=== PATIENT | male | born 1975 ===

== ENCOUNTER 2017-06-02 10:09 | Observation (INO) | payer OTHER ==
[2017-06-02] MEDS ORDERED: Sodium Chloride 0.9% 1,000 ML IV STA (10:44)
--- NOTE | 2017-06-02 10:44 | ED PDOC ---
HPI: General Adult Time Seen by Provider: 06/02/17 10:27 Chief Complaint (Nursing): Dizziness/Lightheaded Chief Complaint (Provider): dizziness, chest pain History Per: Patient Additional History Per: [facility] Additional Complaint(s): 41 year old male presents to ED with acute onset of dizziness, chest pain and epigastric pain that started about 10 minutes after he ate breakfast today. Patient states upon arrival dizziness has resolved but he still has chest and epigastric pain. Patient denies any shortness of breath. He denies any history of similar symptoms. Patient states he has a history of acid reflux and he takes OTC prevacid daily. He denies any nausea or vomiting upon arrival. Denies any fever or chills. Patient denies any recent travel. Past Medical History Reviewed: Historical Data, Nursing Documentation, Vital Signs Vital Signs: Last Vital Signs Temp 98.3 F 06/02/17 13:52 Pulse 75 06/02/17 13:52 Resp 16 06/02/17 13:52 BP 136/73 06/02/17 13:52 Pulse Ox 98 06/02/17 13:52 - Medical History PMH: GERD - Surgical History Surgical History: No Surg Hx - Family History Family History: States: No Known Family Hx - Living Arrangements Living Arrangements: With Family - Social History Current smoker - smoking cessation education provided: No Alcohol: None Drugs: Denies - Home Medications Home Medications: Ambulatory Orders Medication Instructions Recorded No Known Home Med 06/02/17 - Allergies Allergies/Adverse Reactions: Allergies Allergy/AdvReac Type Severity Reaction Status Date / Time No Known Allergies Allergy Verified 06/02/17 10:25 Review of Systems ROS Statement: Except As Marked, All Systems Reviewed And Found Negative Constitutional: Negative for: Fever Cardiovascular: Positive for: Chest Pain. Negative for: Palpitations Respiratory: Negative for: Cough, Shortness of Breath Gastrointestinal: Positive for: Abdominal Pain (epigastric). Negative for: Nausea, Vomiting, Diarrhea Genitourinary Male: Negative for: Dysuria Neurological: Positive for: Dizziness. Negative for: Weakness, Numbness, Incoordination, Change in Speech, Confusion, Seizures, Altered Mental Status, Headache Physical Exam - Reviewed Nursing Documentation Reviewed: Yes Vital Signs Reviewed: Yes - Physical Exam Appears: Positive for: Well, Non-toxic, No Acute Distress Head Exam: Positive for: ATRAUMATIC, NORMAL INSPECTION, NORMOCEPHALIC Skin: Negative for: Rash Eye Exam: Positive for: Normal appearance, EOMI, PERRL Cardiovascular/Chest: Positive for: Regular Rate, Rhythm Respiratory: Positive for: Normal Breath Sounds. Negative for: Respiratory Distress Gastrointestinal/Abdominal: Positive for: Other (super obese abdomen, mild epigastric tenderness, no rebound or guarding) Back: Negative for: L CVA Tenderness, R CVA Tenderness Extremity: Positive for: Normal ROM Neurologic/Psych: Positive for: Alert, Oriented - Laboratory Results Result Diagrams: 06/02/17 10:59 06/02/17 10:59 - ECG Interpretation Of ECG: NSR 96 bpm, no acute finding, reviewed by PA and ED attending O2 Sat by Pulse Oximetry: 97 Pulse Ox Interpretation: Normal - Other Rad GB US X-Ray: Read By Radiologist X-Ray Interpretation: see below CXR X-Ray: Interpreted by Me, Viewed By Me X-Ray Interpretation: no acute finding Medical Decision Making Medical Decision Makin41 year old with chest pain and epigastric pain Plan: EKG CXR GB US CBC CMP Trop IVF PO maalox and pepcid US: LIVER: Measures 23.0 cm in length reflecting hepatomegaly. Exam is somewhat limited due to body habitus. Echogenicity of the liver parenchyma appears grossly nonfocal. No mass. No intrahepatic bile duct dilatation. GALLBLADDER: Cholelithiasis identified within a mildly distended gallbladder. No definite pericholecystic fluid collection is appreciable. COMMON BILE DUCT: Measures 3.2 mm. No stones. No dilatation. PANCREAS: The body of pancreas is unremarkable the remainder obscured by overlying bowel. RIGHT KIDNEY: Measures 11.1 cm. Cm in length. Right kidney appears grossly nonfocal but is limited evaluation due to body habitus. AORTA: No aneurysmal dilatation. IVC: Unremarkable. OTHER FINDINGS: None. IMPRESSION: Hepatomegaly is suspected. No discrete mass is appreciated of the liver. The study is technically limited due to body habitus of the patient. Cholelithiasis identified within the gallbladder which is mildly distended. Normal common bile duct caliber is identified. Partial imaging of the pancreas. 41 year old with morbid obesity presents with chest pain, epigastric pain and dizziness. Hyperglycemia also noted. Case was d/w ED attending Dr. Olivas who agrees patient should be admitted. Dr. Ayala, hospitalist to admit. Patient is aware of and agrees with admission. Disposition - Clinical Impression Clinical Impression: Chest pain, Hyperglycemia - Disposition Disposition Time: 14:33 Condition: FAIR Results - Lab Results Lab Results: 06/02/17 06/02/17 10:59 10:59 WBC 6.1 RBC 5.22 Hgb 15.4 Hct 44.4 MCV 84.9 MCH 29.5 MCHC 34.7 RDW 13.0 Plt Count 225 MPV 8.8 Neut % (Auto) 33.1 L Lymph % (Auto) 55.3 H [place] % (Auto) 8.9 Eos % (Auto) 2.2 Baso % (Auto) 0.5 Neut # 2.0 Lymph # 3.4 [place] # 0.5 Eos # 0.1 Baso # 0.0 Sodium 136 Potassium 4.3 Chloride 99 Carbon Dioxide 30 Anion Gap 10 BUN 17 Creatinine 0.9 Est GFR ( Amer) > 60 Est GFR (Non-Af Amer) > 60 Random Glucose 310 H Calcium 8.6 Total Bilirubin 0.6 AST 32 ALT 51 Alkaline Phosphatase 150 H Troponin I < 0.0120 Total Protein 7.0 Albumin 3.5 Globulin 3.5 Albumin/Globulin Ratio 1.0 Lipase 111
[2017-06-02] MEDS ORDERED: Alum-Mag Hydrox-Simethicone Susp (30 mL) PO STA (10:46)
[2017-06-02 11:05] LABS: BASO % 0.5 % (0.0-2.0); EOS # 0.1 K/uL (0.0-0.7); EOS % 2.2 % (0.0-4.0); HEMOGLOBIN 15.4 g/dL (12.0-18.0); LYMPH # 3.4 K/uL (1.0-4.3); LYMPH % 55.3 % (20.0-40.0); MEAN CELL VOLUME 84.9 fl (80.0-94.0); MEAN CORPUSCULAR HEMOGLOBIN 29.5 pg (27.0-31.0); MEAN CORPUSCULAR HGB CONC 34.7 g/dL (33.0-37.0); MEAN PLATELET VOLUME 8.8 fl (7.2-11.7); MONO # 0.5 K/uL (0.0-0.8); MONO % 8.9 % (0.0-10.0); NEUT % 33.1 % (50.0-75.0); NRBC % 0.2 % (0.0-0.0); RBC 5.22 Mil/uL (4.40-5.90); WHITE BLOOD COUNT 6.1 K/uL (4.8-10.8)
[2017-06-02 11:16] LABS: ALBUMIN 3.5 g/dL (3.5-5.0); ALT/SGPT 51 U/L (21-72); AST/SGOT 32 U/L (17-59); BLOOD UREA NITROGEN 17 mg/dl (9-20); CALCIUM 8.6 mg/dL (8.4-10.2); GFR AFRICAN-AMERICAN > 60; GFR NON-AFRICAN AMERICAN > 60
--- NOTE | 2017-06-02 13:26 | RAD ---
HISTORY: chest pain COMPARISON: No prior. FINDINGS: LUNGS: No active pulmonary disease. PLEURA: No significant pleural effusion identified, no pneumothorax apparent. CARDIOVASCULAR: No radiographic findings to suggest acute or significant cardiovascular disease. OSSEOUS STRUCTURES: No significant abnormalities. VISUALIZED UPPER ABDOMEN: Normal. OTHER FINDINGS: None. IMPRESSION: No active disease. Concordant results with the preliminary interpretation rendered by the emergency department physician procedure.
[2017-06-02 13:46] LABS: LIPASE 111 U/L (23-300)
--- NOTE | 2017-06-02 14:21 | US ---
HISTORY: epigastric pain COMPARISON: None. TECHNIQUE: Sonographic evaluation of the right upper quadrant of the abdomen. FINDINGS: LIVER: Measures 23.0 cm in length reflecting hepatomegaly. Exam is somewhat limited due to body habitus. Echogenicity of the liver parenchyma appears grossly nonfocal. No mass. No intrahepatic bile duct dilatation. GALLBLADDER: Cholelithiasis identified within a mildly distended gallbladder. No definite pericholecystic fluid collection is appreciable. COMMON BILE DUCT: Measures 3.2 mm. No stones. No dilatation. PANCREAS: The body of pancreas is unremarkable the remainder obscured by overlying bowel. RIGHT KIDNEY: Measures 11.1 cm. Cm in length. Right kidney appears grossly nonfocal but is limited evaluation due to body habitus. . AORTA: No aneurysmal dilatation. IVC: Unremarkable. OTHER FINDINGS: None . IMPRESSION: Hepatomegaly is suspected. No discrete mass is appreciated of the liver. The study is technically limited due to body habitus of the patient. Cholelithiasis identified within the gallbladder which is mildly distended. Normal common bile duct caliber is identified. Partial imaging of the pancreas.
--- NOTE | 2017-06-02 14:22 | CP.PCM.HP ---
History of Present Illness - History of Present Illness History of Present Illness: 41 yo male morbidly obese with history of GERD and on Prevacid daily complained of mid sternal chest pain since this morning radiating to the back. Pain lasted until patient was seen in the ER where he was given Pepcid and Maalox. Pt also complained of dizziness associated with the chest pain. Denied nausea or vomiting. Denied also fever or chills. Present on Admission - Present on Admission Any Indicators Present on Admission: No History of DVT/PE: No History of Uncontrolled Diabetes: No Urinary Catheter: No Decubitus Ulcer Present: No Review of Systems - Review of Systems All systems: reviewed and no additional remarkable complaints except (aside from those mentioned above, 12 point system review were negative by me) Past Patient History - Tetanus Immunizations Tetanus Immunization: Unknown - Past Medical History & Family History Past Family History: Reviewed and not pertinent - Past Social History Smoking Status: Never Smoked Alcohol: None Drugs: Denies - CARDIAC Hx Cardiac Disorders: No - PULMONARY Hx Respiratory Disorders: No - NEUROLOGICAL Hx Neurological Disorder: No - HEENT Hx HEENT Problems: No - RENAL Hx Chronic Kidney Disease: No - ENDOCRINE/METABOLIC Hx Endocrine Disorders: No - HEMATOLOGICAL/ONCOLOGICAL Hx Blood Disorders: No - INTEGUMENTARY Hx Dermatological Problems: No - MUSCULOSKELETAL/RHEUMATOLOGICAL Hx Musculoskeletal Disorders: No - GASTROINTESTINAL Hx Gastroesophageal Reflux: Yes - GENITOURINARY/GYNECOLOGICAL Hx Genitourinary Disorders: No - PSYCHIATRIC Hx Psychophysiologic Disorder: No Hx Substance Use: No - SURGICAL HISTORY Hx Surgeries: No - ANESTHESIA Hx Anesthesia: No Meds Allergies/Adverse Reactions: Allergies Allergy/AdvReac Type Severity Reaction Status Date / Time No Known Allergies Allergy Verified 06/02/17 10:25 Physical Exam - Constitutional Appears: Other (morbidly obese) - Head Exam Head Exam: ATRAUMATIC - Eye Exam Eye Exam: absent: Scleral icterus - ENT Exam ENT Exam: Mucous Membranes Moist - Neck Exam Neck exam: Negative for: Meningismus - Respiratory Exam Respiratory Exam: Decreased Breath Sounds. absent: Chest Wall Tenderness, Rhonchi, Wheezes - Cardiovascular Exam Cardiovascular Exam: REGULAR RHYTHM, +S1, +S2 - GI/Abdominal Exam GI & Abdominal Exam: Soft. absent: Tenderness - Rectal Exam Rectal Exam: Deferred - Back Exam Back exam: absent: tenderness - Neurological Exam Neurological exam: Alert, Oriented x3 - Psychiatric Exam Psychiatric exam: Normal Affect - Skin Skin Exam: Dry, Intact Results - Vital Signs Recent Vital Signs: Last Vital Signs Temp 98.3 F 06/02/17 13:52 Pulse 75 06/02/17 13:52 Resp 16 06/02/17 13:52 BP 136/73 06/02/17 13:52 Pulse Ox 98 06/02/17 13:52 - Labs Result Diagrams: 06/02/17 10:59 06/02/17 10:59 Assessment & Plan (1) Chest pain Status: Acute Comment: place on observation in telemetry. serial Troponin and EKG. ASA 81 PO daily. lipid profile. NTG SL prn for chest pain. Morphine 2mg IV q 4hrs prn for chest pain not relieved with above (2) New onset type 2 diabetes mellitus Status: Acute Comment: diabetic diet. refer to restorative aide. accuchrosetta NAIK. HgA1C, BMP in am. Metformin 1000mg PO q 12hrs
[2017-06-02] MEDS ORDERED: Morphine 4 MG/ML VIAL IVP PRN (14:39)
[2017-06-02] MEDS ORDERED: Sodium Chloride 0.9% 1,000 ML IV SCH (14:45)
[2017-06-02 19:34] VITALS: BMI 68.0
[2017-06-03 06:04] LABS: HEMOGLOBIN 15.5 g/dL (12.0-18.0); MEAN CELL VOLUME 86.3 fl (80.0-94.0); MEAN CORPUSCULAR HGB CONC 33.6 g/dL (33.0-37.0); RBC 5.34 Mil/uL (4.40-5.90); RED CELL DISTRIBUTION WIDTH 13.5 % (11.5-14.5); WHITE BLOOD COUNT 6.3 K/uL (4.8-10.8)
[2017-06-03 06:14] LABS: BLOOD UREA NITROGEN 11 mg/dl (9-20); GFR AFRICAN-AMERICAN > 60; GFR NON-AFRICAN AMERICAN > 60; HDL CHOLESTEROL 30 MG/DL (30-70)
[2017-06-03 06:26] LABS: LDL CHOLESTEROL 129 mg/dL (0-129)
[2017-06-03 08:11] VITALS: RESP 18
--- NOTE | 2017-06-03 08:21 | CP.PCM.DIS ---
Provider - Provider Date of Admission: 06/02/17 12:58 Attending physician: James Ayala MD Primary care physician: NO FAMILY PROVIDER Time Spent in preparation of Discharge (in minutes): 30 Diagnosis - Discharge Diagnosis (1) New onset type 2 diabetes mellitus Status: Acute (2) Chest pain Status: Acute (3) Morbid obesity with BMI of 60.0-69.9, adult Status: Chronic Hospital Course - Lab Results Lab Results: Most Recent Lab Values WBC 6.3 K/uL (4.8-10.8) 06/03/17 05:30 RBC 5.34 Mil/uL (4.40-5.90) 06/03/17 05:30 Hgb 15.5 g/dL (12.0-18.0) 06/03/17 05:30 Hct 46.1 % (35.0-51.0) 06/03/17 05:30 MCV 86.3 fl (80.0-94.0) 06/03/17 05:30 MCH 29.0 pg (27.0-31.0) 06/03/17 05:30 MCHC 33.6 g/dL (33.0-37.0) 06/03/17 05:30 RDW 13.5 % (11.5-14.5) 06/03/17 05:30 Plt Count 234 K/uL (130-400) 06/03/17 05:30 MPV 8.8 fl (7.2-11.7) 06/02/17 10:59 Neut % (Auto) 33.1 % (50.0-75.0) L 06/02/17 10:59 Lymph % (Auto) 55.3 % (20.0-40.0) H 06/02/17 10:59 [place] % (Auto) 8.9 % (0.0-10.0) 06/02/17 10:59 Eos % (Auto) 2.2 % (0.0-4.0) 06/02/17 10:59 Baso % (Auto) 0.5 % (0.0-2.0) 06/02/17 10:59 Neut # 2.0 K/uL (1.8-7.0) 06/02/17 10:59 Lymph # 3.4 K/uL (1.0-4.3) 06/02/17 10:59 [place] # 0.5 K/uL (0.0-0.8) 06/02/17 10:59 Eos # 0.1 K/uL (0.0-0.7) 06/02/17 10:59 Baso # 0.0 K/uL (0.0-0.2) 06/02/17 10:59 Sodium 138 mmol/l (132-148) 06/03/17 05:30 Potassium 5.2 MMOL/L (3.6-5.0) H 06/03/17 05:30 Chloride 103 mmol/L (98-107) 06/03/17 05:30 Carbon Dioxide 29 mmol/L (22-30) 06/03/17 05:30 Anion Gap 11 (10-20) 06/03/17 05:30 BUN 11 mg/dl (9-20) 06/03/17 05:30 Creatinine 0.8 mg/dL (0.8-1.5) 06/03/17 05:30 Est GFR ( Amer) > 60 06/03/17 05:30 Est GFR (Non-Af Amer) > 60 06/03/17 05:30 POC Glucose (mg/dL) 155 mg/dL (65-110) H 06/03/17 05:05 Random Glucose 156 mg/dL (75-110) H 06/03/17 05:30 Calcium 9.0 mg/dL (8.4-10.2) 06/03/17 05:30 Total Bilirubin 0.6 mg/dl (0.2-1.3) 06/02/17 10:59 AST 32 U/L (17-59) 06/02/17 10:59 ALT 51 U/L (21-72) 06/02/17 10:59 Alkaline Phosphatase 150 U/L (38-126) H 06/02/17 10:59 Troponin I < 0.0120 ng/mL (0.00-0.120) 06/03/17 05:30 Total Protein 7.0 G/DL (6.3-8.2) 06/02/17 10:59 Albumin 3.5 g/dL (3.5-5.0) 06/02/17 10:59 Globulin 3.5 gm/dL (2.2-3.9) 06/02/17 10:59 Albumin/Globulin Ratio 1.0 (1.0-2.1) 06/02/17 10:59 Triglycerides 118 mg/DL (0-149) 06/03/17 05:30 Cholesterol 178 mg/dL (0-199) 06/03/17 05:30 LDL Cholesterol Direct 129 mg/dL (0-129) 06/03/17 05:30 HDL Cholesterol 30 MG/DL (30-70) 06/03/17 05:30 Lipase 111 U/L (23-300) 06/02/17 10:59 - Hospital Course Hospital Course: 41 y/o gent, morbidly obese, came in complaining of generalized weakness, not feeling well and had slight chest discomfort. No SOB. no palpitation , no abd pain, no N/V. In the ED , found to have and elevated blood glucose in the 300's. + Family history of DM ( mother). Pt was observed in Telemetry. EKG: no ST T changes. Troponin x 3 negative. No abn rhythm on Tele monitoring. Accucheck q AC and HS done. Pt was started on Metformin. 1. New Onset DM type II - cont Metformin - accucheck qac and HS - DM teaching done -counseled on diet and exercise 2. Chest Pain , atypical , likely musculoskeletal pain Trop x 3 neg EKG : neg - 3. Morbid Obesity woiith BMI =68 - counseled on diet and exercise Discharge Exam - Head Exam Head Exam: ATRAUMATIC, NORMAL INSPECTION, NORMOCEPHALIC - Eye Exam Eye Exam: EOMI, Normal appearance, PERRL Pupil Exam: NORMAL ACCOMODATION - ENT Exam ENT Exam: Mucous Membranes Moist, Normal External Ear Exam - Neck Exam Neck exam: Full Rom - Respiratory Exam Respiratory Exam: NORMAL BREATHING PATTERN. absent: Rales, Wheezes, Respiratory Distress - Cardiovascular Exam Cardiovascular Exam: REGULAR RHYTHM, +S1, +S2 - GI/Abdominal Exam GI & Abdominal Exam: Normal Bowel Sounds, Soft. absent: Tenderness - Extremities Exam Extremities exam: full ROM, normal capillary refill, pedal pulses present - Back Exam Back exam: FULL ROM, NORMAL INSPECTION. absent: CVA tenderness (L), CVA tenderness (R), vertebral tenderness - Neurological Exam Neurological exam: Alert, CN II-XII Intact, Oriented x3, Reflexes Normal - Psychiatric Exam Psychiatric exam: Normal Affect, Normal Mood - Skin Skin Exam: Dry, Normal Color, Warm Discharge Plan - Discharge Medications Prescriptions: metFORMIN [glucOPHAGE] 500 mg PO BID #60 tab - Follow Up Plan Condition: GOOD Disposition: HOME/ ROUTINE Instructions: Diabetes Mellitus Type 2 in Adults (DC), Diabetic Hyperglycemia ( DC) Additional Instructions: ff up CF in 1 wk Referrals: FAMILY PROVIDER,NO [Primary Care Provider] - [facility] [Outside]
--- NOTE | 2017-06-03 10:27 | CARD ---
APPROVED REPORT EKG Measurement Heart [id number] <Conclusion> Normal sinus rhythm Prolonged QT Abnormal ECG
[2017-06-03 12:18] VITALS: BP 144/88; PULSE 76; TEMP 98.1; O2SAT 98
== END 2017-06-03 13:35 | disposition home or self-care (01) ==
LOC: H.ER 10:09 → EDSEX 10:09 → SUPCPDRO 10:09 → H.ERHOLD 12:58 → H.TEL 14:58
DX: E11.65 Type 2 diabetes mellitus with hyperglycemia (principal); R07.89 Other chest pain; E66.01 Morbid (severe) obesity due to excess calories; Z68.44 Body mass index [BMI] 60.0-69.9, adult; K21.9 Gastro-esophageal reflux disease without esophagitis; Z83.3 Family history of diabetes mellitus